=== PATIENT | female | born 1950 | race Caucasian/White ===

== ENCOUNTER 2024-04-15 13:38 | Emergency (ER) | payer MEDICARE, BC, SELFPAY ==
[2024-04-15 13:43] VITALS: BP 149/69
[2024-04-15 14:00] VITALS: BP 138/82
[2024-04-15 14:05] VITALS: BMI 31.0
[2024-04-15 14:13] LABS: % Basophils 0.6 % (0-2); % Eosinophils 1.5 % (0-6); % Immature Granulocytes 0.2 % (0-0.5); % Lymphocytes 15.5 % (20.5-51.1); % Monocytes 7.8 % (1.7-9.3); % Neutrophils 74.4 % (42.2-75.2); Absolute Basophils 0.1 10^3/uL (0-0.2); Absolute Eosinophils 0.1 10^3/uL (0-0.7); Absolute Lymphocytes 1.5 10^3/uL (1.2-3.4); Absolute Monocytes 0.7 10^3/uL (0.1-0.6); Absolute Neutrophils 7.1 10^3/uL (1.4-6.5); Hematocrit 39.6 % (37.0-47.0); Hemoglobin 12.9 g/dL (12.0-16.0); Mean Corp Hgb Conc. 32.6 g/dL (33.0-37.0); Mean Corpuscular Hgb 28.7 pg (27.0-31.0); Mean Corpuscular Volume 88.2 fL (81.0-99.0); Nucleated Red Blood Cells % 0 %; Platelet Count 224 10^3/uL (130-400); Red Blood Cell Count 4.49 10^6/uL (4.20-5.40); Red Cell Dist. Width 14.8 % (11.5-14.5); White Blood Cell Count 9.5 10^3/uL (4.8-10.8)
[2024-04-15 14:14] LABS: Urine Albumin Trace (Neg - Trace); Urine Bilirubin Negative (Negative); Urine Character Very Cloudy (Clear); Urine Color Yellow; Urine Glucose 3+ (Negative); Urine Ketone Negative (Negative); Urine Leukocyte 2+ (Negative); Urine Nitrite Negative (Negative); Urine Occult Blood 2+ (Negative); Urine Specific Gravity 1.015 (<1.030); Urine Urobilinogen Negative (Neg - 1+)
[2024-04-15 14:20] LABS: Urine Bacteria Moderate (Negative); Urine Squamous Cell 0-2 /LPF (Few); Urine Yeast Moderate (Negative)
[2024-04-15 14:21] LABS: Urine White Cell 30-40 /HPF (0-5)
[2024-04-15 14:33] LABS: ALT (SGPT) 18 U/L (0-35); AST (SGOT) 20 U/L (14-36); Albumin 3.9 g/dl (3.5-5.0); Alkaline Phosphatase 141 U/L (38-126); Blood Urea Nitrogen 24 mg/dl (7-17); Calcium 9.3 mg/dl (8.4-10.2); Carbon Dioxide 23 mmol/L (22-30); Chloride 104 mmol/L (98-107); Estimated Creatinine Clearance 58 ml/min; Glucose 151 mg/dl (70-99); Potassium 3.9 mmol/L (3.5-5.1); Sodium 138 mmol/L (135-145); Total Bilirubin 0.2 mg/dl (0.2-1.3); eGFR 53.72
[2024-04-15] MEDS: OMNICEF 300 MG PO (15:44)
--- NOTE | 2024-04-15 16:20 | ED.GENMED ---
History of Present Illness
General
Chief Complaint: Urinary Symptoms
Source: patient and spouse
Exam Limitations: none
Time Seen by Provider: 04/15/24 14:12
Nursing documentation reviewed up to this point in time: agreed with
History of Present Illness
History of Present Illness:
73-year-old female with past medical history of IBS diabetes previous kidney stones presenting to the emergency department today with concerns of intermittent urinary burning and cloudiness over the past 5 weeks previously treated for UTI few weeks
ago but did not have any obvious improvement. Had additional testing with the primary care doctor 2 weeks ago that did not show any obvious ongoing urinary tract infection. Has had some ongoing discomfort to the suprapubic region. Denies any
fevers chest pain shortness of breath. This seemed to coincide with the immunoglobulin injection that she had preceding the onset of the urinary symptoms.
Past History
Past History
ED Past Medical History: NIDDM; Negative Renal failure
ED Past Surgical History: Cholecystectomy and Gynecological
Social History
Tobacco: Non-smoker
Alcohol: Occasional
Drug: None
Living: with family
Employment: Retired
Family History
Family History: Negative CAD
Review of Systems
Review of Systems
Allergies reviewed?: Yes
All Other Systems: ROS reviewed and negative except as documented in HPI and ROS
Phy Exam
Physical Exam
Physical Exam:
GENERAL: Alert , in no apparent distress
EYE: pupils equal and reactive
NECK: Supple, no significant adenopathy.
ENT: o/p clr, mmm.
CARDIAC: Regular rate and rhythm .
LUNGS: Clear breath sounds bilaterally, no acute respiratory distress, no wheezes/rales/rhonchi
ABDOMEN: Mild pain to the lower abdomen no CVA tenderness upper abdomen without tenderness
NEUROLOGICAL: Alert and oriented, no focal neuro deficits
SKIN: Warm and dry, skin intact.
MUSCULOSKELETAL: No edema, well perfused.
PSYCH: Normal and appropriate interaction.
Course
Orders/Labs/Results
Orders:
Orders
04/15/24 13:58
Complete Blood Count/With Diff Urgent
Comprehensive Metabolic Panel Urgent
Urinalysis Reflex To Culture Urgent
Date Specimen was Collected: 04/15/24
Time Specimen was Collected: 13:47
Urine Microscopic Reflex Cult Urgent
Urine Culture Urgent
TRUNG Source: U
Specimen Description:
Obtained by: Random
Date Specimen was Collected: 04/15/24
Time Specimen was Collected: 13:47
04/15/24 14:47
Cefdinir [Omnicef] 300 mg PO NOW STA
04/15/24 15:07
CT Abd/Pel (IV only)-DH only Urgent
Comment:
Reason For Exam: lower abd pain
Abnormal Lab Results
04/15/24
13:58
MCHC 32.6 L g/dL
(33.0-37.0)
RDW 14.8 H %
(11.5-14.5)
Absolute Neuts (auto) 7.1 H 10^3/uL
(1.4-6.5)
Absolute Monos (auto) 0.7 H 10^3/uL
(0.1-0.6)
Lymphocytes % 15.5 L %
(20.5-51.1)
BUN 24 H mg/dl
(7-17)
Creatinine 1.1 H mg/dL
(0.6-1.0)
Glucose 151 H mg/dl
(70-99)
Alkaline Phosphatase 141 H U/L
(38-126)
Ur Occult Blood Reflex 2+ A
(Negative)
Leukocyte Esterase Rfl 2+ A
(Negative)
Urine RBC 7-10 A /HPF
(0-2)
Urine WBC (Reflex) 30-40 A /HPF
(0-5)
Urine Bacteria (Reflex) Moderate A
(Negative)
Urine Yeast Moderate A
(Negative)
Urine Glucose 3+ A
(Negative)
04/15/24 13:58
04/15/24 13:58
Vital Signs
Initial and Last Documented VS:
Initial Vital Signs
Temp Pulse Resp BP Pulse Ox
98.4 F 73 18 149/69 98
04/15/24 13:43 04/15/24 13:43 04/15/24 13:43 04/15/24 13:43 04/15/24 13:43
Last Documented Vital Signs
Temp Pulse Resp BP Pulse Ox
98.4 F 76 18 138/82 98
04/15/24 13:43 04/15/24 18:21 04/15/24 18:21 04/15/24 14:00 04/15/24 18:21
MDM/Problems Addressed
MDM/Problems Addressed:
73-year-old female presenting to the emergency department today with concerns of ongoing urinary symptoms and lower abdominal pain over the past 5 weeks. Upon arrival here vital signs are normal patient in no distress patient does have reproducible
pain to the lower abdomen urinalysis does appear to be consistent with urinary tract infection. She was darted on antibiotics. She did have a listed cephalosporin allergy but claims she believes she has had a cephalosporin in the past without
reaction. She was started on cefdinir with no reaction. Additionally CT scan was ordered for further assessment. CT without emergent findings stable for outpatient follow-up return precautions given.
*Critical Care Note
Total Time (30-74mins, 75-104mins- exclusive of procedures): Not Applicable
ED Attending Note
-
Portions of this chart may have been created with voice recognition software.� Occasional wrong word or��sound alike� substitutions may have occurred due to the inherent limitations of voice recognition software.
Discharge Plan
Departure
Patient Disposition: Home (Routine Discharge)
Date of Disposition: 04/15/24
Time of Disposition: 17:53
Patient with high blood pressure during this ER visit?: No
Condition: Good
Covid-19: Not Applicable
Discharge Problem:
Acute UTI
Instructions: Urinary Tract Infection, Adult (DC)
Prescriptions:
New
cefdinir 300 mg capsule
300 mg PO BID 7 Days Qty: 14 0RF
fluconazole 150 mg tablet
150 mg PO ONCE Qty: 1 0RF
No Action
pantoprazole [Protonix] 40 mg tablet,delayed release (DR/EC)
40 mg PO DAILY Qty: 20 0RF
alum-mag hydroxide-simeth [Maalox Maximum Strength] 400-400-40 mg/5 mL suspension
10 ml PO Q4H PRN (Reason: indigestion) Qty: 355 0RF
Referrals:
Candelario Rodriguez MD [Active] - Follow up in 10 days
NONE,* [Active] -
Activity Restrictions/Additional Instructions:
You came to the emergency department today with concerns of ongoing urinary symptoms. You are found to have a likely urinary tract infection. Please take the prescribed antibiotic and follow-up closely with urology for any ongoing symptoms.
Return for any worsening, new or concerning symptoms.
Interventions
Interventions:
*Risk Screen - Suicide Last Done: 04/15/24 13:43
*General Assessment Last Done: 04/15/24 13:43
*Neglect/Abuse Screening Last Done: 04/15/24 13:43
ED- Fall Risk Assessment Last Done: 04/15/24 14:04
*ED COVID-19 Vaccine History Last Done: 04/15/24 14:03
*Nursing Disposition Last Done: 04/15/24 18:21
ED-Female Genitourinary Assessment Last Done: 04/15/24 14:41
Discharge Date and Time
Discharge Date/Time: 04/15/24 18:00
Print Language: FAROESE
== END 2024-04-15 18:00 | disposition home or self-care (01) ==
LOC: EMR 13:38
PROVIDERS: Student in an Organized Health Care Education/Training Program; EMERGENCY PHYSICIAN Emergency Medicine; FAMILY PHYSICIAN Internal Medicine
DX: N39.0 Urinary tract infection, site not specified (principal); E11.9 Type 2 diabetes mellitus without complications; Z87.442 Personal history of urinary calculi; Z90.49 Acquired absence of other specified parts of digestive tract
CPT/HCPCS: 99284; 74177; 80053; 81003; 81015; 85025; 87086; Q9967

== ENCOUNTER 2024-08-07 14:57 | Emergency (ER) | payer MEDICARE, OTHER, SELFPAY ==
[2024-08-07 14:58] VITALS: BP 151/73
[2024-08-07 15:26] LABS: Urine Albumin 2+ (Neg - Trace); Urine Bilirubin Negative (Negative); Urine Character Slightly Cloudy (Clear); Urine Color Yellow; Urine Glucose 4+ (Negative); Urine Ketone Negative (Negative); Urine Leukocyte 3+ (Negative); Urine Nitrite Negative (Negative); Urine Occult Blood 4+ (Negative); Urine Specific Gravity 1.015 (<1.030); Urine Urobilinogen Negative (Neg - 1+)
[2024-08-07 15:34] LABS: Urine Squamous Cell 0-2 /LPF (Few)
[2024-08-07 15:35] LABS: Urine Bacteria Many (Negative); Urine White Cell >100 /HPF (0-5); Urine Yeast Few (Negative)
--- NOTE | 2024-08-07 16:38 | ED.GENMED ---
History of Present Illness
General
Chief Complaint: Urinary Symptoms
Source: patient
Exam Limitations: none
Time Seen by Provider: 08/07/24 16:32
Nursing documentation reviewed up to this point in time: agreed with
History of Present Illness
History of Present Illness:
73-year-old female with history of neuropathy, IBS, kidney stones, UTI, NIDDM, cholecystectomy, hysterectomy presents for frequent UTI's past 6 mos. since getting Octagam infusions for neuropathy. Her BRUSHER OPERATOR/Urologist Dr. Kauffman is requesting ID
consultation. Pt has hx yeast in her urine. She had a vaginal culture 07/31. Pending the culture result, she was started on Fluconazole day 1 and 3 then once weekly. Her vaginal culture came back today with 'edgardo glabarata' that Dr. Cardenas found is
resistant to Fluconazole and she said it is responsive to Amphotericin IV. Pt has significant pains in vaginal area and bladder. Afebrile, totally non toxic appearing. Denies fever/chills.
Denies n/v/d.
She has significant dysuria and 'my bladder feels like it's on fire.' Also sharp stabbing pains in vagina
Past History
Past History
ED Past Medical History: NIDDM; Negative Renal failure
ED Past Surgical History: Cholecystectomy and Gynecological
Social History
Tobacco: Non-smoker
Alcohol: Occasional
Drug: None
Living: with family
Employment: Retired
Family History
Family History: Negative CAD
Review of Systems
Review of Systems
Allergies reviewed?: Yes
All Other Systems: ROS reviewed and negative except as documented in HPI and ROS
Constitutional: Denies fever or chills
Respiratory: Denies trouble breathing
Cardiac: Denies chest pain
ABD/GI: Reports abdominal pain (lower 'my bladder feels like it's on fire.' ) and constipated (73-year-old female with history of neuropathy, IBS, kidney stones, UTI, NIDDM, cholecystectomy, hysterectomy presents for frequent UTI's past 6 mos. since
getting Octagam infusions for neuropathy. Her BRUSHER OPERATOR/Urologist Dr. Kauffman is requesting ID consultation. Pt has hx yeast in her urine. She had a va); Denies nausea, vomiting or diarrhea
: Reports dysuria and frequency
Course
Orders/Labs/Results
Orders:
Orders
08/07/24 15:11
Urinalysis Reflex To Culture Urgent
Date Specimen was Collected: 08/07/24
Time Specimen was Collected: 15:04
Urine Microscopic Reflex Cult Urgent
Urine Culture Urgent
TRUNG Source: U
Specimen Description:
Date Specimen was Collected: 08/07/24
Time Specimen was Collected: 15:04
Abnormal Lab Results
08/07/24
15:11
Ur Occult Blood Reflex 4+ A
(Negative)
Leukocyte Esterase Rfl 3+ A
(Negative)
Urine RBC 7-10 A /HPF
(0-2)
Urine WBC (Reflex) >100 A /HPF
(0-5)
Urine Bacteria (Reflex) Many A
(Negative)
Urine Yeast Few A
(Negative)
Urine Glucose 4+ A
(Negative)
Urine Albumin (Reflex) 2+ A
(Neg - Trace)
08/07/24 17:25
08/07/24 17:27
Vital Signs
Initial and Last Documented VS:
Initial Vital Signs
Temp Pulse Resp BP Pulse Ox
97.9 F 79 16 151/73 99
08/07/24 14:58 08/07/24 14:58 08/07/24 14:58 08/07/24 14:58 08/07/24 14:58
Last Documented Vital Signs
Temp Pulse Resp BP Pulse Ox
97.9 F 75 18 151/65 100
08/07/24 14:58 08/07/24 17:11 08/07/24 17:11 08/07/24 17:11 08/07/24 17:11
MDM/Problems Addressed
MDM/Problems Addressed:
73-year-old female with history of neuropathy, IBS, kidney stones, UTI, NIDDM, cholecystectomy, hysterectomy presents for frequent UTI's past 6 mos. since getting Octagam infusions for neuropathy. Her BRUSHER OPERATOR/Urologist Dr. Kauffman is requesting ID
consultation. Pt has hx yeast in her urine. She had a vaginal culture 07/31. Pending the culture result, she was started on Fluconazole day 1 and 3 then once weekly. Her vaginal culture came back today with 'edgardo glabarata' that Dr. Cardenas found is
resistant to Fluconazole and she said it is responsive to Amphotericin IV. Pt has significant pains in vaginal area and bladder. Afebrile, totally non toxic appearing. Denies fever/chills.
Denies n/v/d.
She has significant dysuria and 'my bladder feels like it's on fire.' Also sharp stabbing pains in vagina
Afebrile, NAD
5:[address] Gaitan who recommends 7 days of miconazole
ED Attending Note
-
Portions of this chart may have been created with voice recognition software.� Occasional wrong word or��sound alike� substitutions may have occurred due to the inherent limitations of voice recognition software.
Discharge Plan
Departure
Patient Disposition: Home (Routine Discharge)
Date of Disposition: 08/07/24
Time of Disposition: 18:45
Patient with high blood pressure during this ER visit?: No
Condition: Fair
Discharge Problem:
UTI (urinary tract infection), Yeast infection
Instructions: Urinary tract infections in adults, Vaginal Yeast Infection, Adult ED
Prescriptions:
New
miconazole nitrate [Miconazole-7] 2 % cream
1 appful vaginal HS 7 Days Qty: 45 0RF
sulfamethoxazole-trimethoprim [Bactrim DS] 800-160 mg tablet
1 tab PO BID Qty: 10 0RF
No Action
pantoprazole [Protonix] 40 mg tablet,delayed release (DR/EC)
40 mg PO DAILY Qty: 20 0RF
alum-mag hydroxide-simeth [Maalox Maximum Strength] 400-400-40 mg/5 mL suspension
10 ml PO Q4H PRN (Reason: indigestion) Qty: 355 0RF
cefdinir 300 mg capsule
300 mg PO BID 7 Days Qty: 14 0RF
fluconazole 150 mg tablet
150 mg PO ONCE Qty: 1 0RF
Referrals:
Daly Parker [Other] - Tomorrow
Erika Valdes MD [Family Provider] -
Activity Restrictions/Additional Instructions:
As discussed, call Dr. Vega tomorrow and inform of today's visit.
I spoke with our ID Dr. Gaitan who recommended miconazole vaginal cream every day for [address]. [address] Vega that he stated 'the threshold to use Amphotericin be IV is quite high, like really high.' He states 'you would need something
more to go on then finding glabrata in the urine.'
I sent prescriptions to your pharmacy for Bactrim (since you said you have taken in and had no adverse reaction and you are not allergic) and also for Monistat or Clotrimazole cream (this may be over the counter).
Interventions
Interventions:
*Risk Screen - Suicide Last Done: 08/07/24 14:58
*General Assessment Last Done: 08/07/24 17:07
*Neglect/Abuse Screening Last Done: 08/07/24 14:58
*ED- Fall Risk Assessment Last Done: 08/07/24 17:07
*ED COVID-19 Vaccine History Last Done: 08/07/24 17:07
ED-Female Genitourinary Assessment Last Done: 08/07/24 17:13
Discharge Date and Time
Print Language: [place]AST [place]
[2024-08-07 17:10] VITALS: BMI 33.7
[2024-08-07 17:11] VITALS: BP 151/65
== END 2024-08-07 19:09 | disposition home or self-care (01) ==
LOC: EMR 14:57
PROVIDERS: Emergency Medicine; EMERGENCY PHYSICIAN Student in an Organized Health Care Education/Training Program; FAMILY PHYSICIAN Internal Medicine
DX: N39.0 Urinary tract infection, site not specified (principal); B37.9 Candidiasis, unspecified; E11.40 Type 2 diabetes mellitus with diabetic neuropathy, unspecified; K58.9 Irritable bowel syndrome, unspecified; Z87.440 Personal history of urinary (tract) infections; Z87.442 Personal history of urinary calculi; Z90.49 Acquired absence of other specified parts of digestive tract
CPT/HCPCS: 99282; 81003; 81015; 87086